=== PATIENT | female | born 1970 | race Caucasian/White ===

== ENCOUNTER → 2018-05-28 11:44 | Outpatient (CLI) | payer OTHER, SELFPAY ==
--- NOTE | 2018-05-28 | DI.RAD.S_ITS ---
PROCEDURE: XR HIP W PEL IF DONE RT 2V INDICATIONS: BILATERAL HAND AND RT HIP PAIN TECHNIQUE: AP pelvis with lateral view(s) of the right hip(s). COMPARISON: None. FINDINGS: Bones: No fractures or dislocations. Pelvic ring appears intact. No suspicious bony lesions. No evidence of avascular necrosis. Soft tissues: The visualized bowel gas pattern is normal. No suspicious soft tissue calcifications. IMPRESSION: Unremarkable radiographic examination of the pelvis and right hip. Dictated by: Rafi Sellers M.D. on 05/28/2018 at 12:10 Approved by: Rafi Sellers M.D. on 05/28/2018 at 12:11
--- NOTE | 2018-05-28 | DI.RAD.S_ITS ---
PROCEDURE: XR HAND RT MIN 3V INDICATIONS: BILATERAL HAND AND RT HIP PAIN TECHNIQUE: 3 views of the hand(s) acquired. COMPARISON: [facility], CR, XR HAND LT MIN 3V, 05/28/2018, 11:29. FINDINGS: Bones: No fractures or dislocations. Carpal bones are normally aligned. No suspicious bony lesions. No joint space narrowing or gross bony erosive changes. Soft tissues: No suspicious soft tissue calcifications. IMPRESSION: Unremarkable radiographic examination of right hand. Dictated by: Rafi Sellers M.D. on 05/28/2018 at 12:12 Approved by: Rafi Sellers M.D. on 05/28/2018 at 12:13
--- NOTE | 2018-05-28 | DI.RAD.S_ITS ---
PROCEDURE: XR HAND LT MIN 3V INDICATIONS: BILATERAL HAND AND RT HIP PAIN TECHNIQUE: 3 views of the hand(s) acquired. COMPARISON: None. FINDINGS: Bones: No fractures or dislocations. Carpal bones are normally aligned. No suspicious bony lesions. Soft tissues: No suspicious soft tissue calcifications. IMPRESSION: Unremarkable radiographic examination of left hand. No bony erosive changes are seen. No fracture or dislocation. Dictated by: Rafi Sellers M.D. on 05/28/2018 at 12:11 Approved by: Rafi Sellers M.D. on 05/28/2018 at 12:12
== END ==
PROVIDERS: PCP Family Medicine; Visit Provider Family Medicine
DX: M25.551 Pain in right hip (principal); M79.642 Pain in left hand; M79.641 Pain in right hand
CPT/HCPCS: 73130; 73502

== ENCOUNTER → 2019-05-22 11:50 | Outpatient (CLI) | payer OTHER, SELFPAY ==
--- NOTE | 2019-05-22 | DI.MG.S_ITS ---
BILATERAL DIGITAL SCREENING MAMMOGRAM 3D/2D WITH CAD: 05/22/2019 CLINICAL: Bilateral Screening. Comparison is made to exams dated: 11/17/2011 mammogram and 11/19/2009 mammogram - [facility]. The tissue of both breasts is heterogeneously dense. This may lower the sensitivity of mammography. Current study was also evaluated with a Computer Aided Detection (CAD) system. No significant masses, calcifications, or other findings are seen in either breast. There has been no significant interval change. IMPRESSION: NEGATIVE There is no mammographic evidence of malignancy. A 1 year screening mammogram is recommended. This exam was interpreted at Station ID: [id number]. NOTE: For mammograms, a report in lay terms will be sent to the patient. Approximately 15% of breast malignancies will not be visualized mammographically. In the management of a palpable breast mass, a negative mammogram must not discourage biopsy of a clinically suspicious lesion. Electronically Signed By: Asif fowler/jarret:05/22/2019 22:13:19 letter sent: Normal Exam ACR BI-RADS Category 1: Negative 3341F
== END ==
PROVIDERS: PCP Family Medicine; Visit Provider Family Medicine
DX: Z12.31 Encounter for screening mammogram for malignant neoplasm of breast (principal)
CPT/HCPCS: 77063; 77067

== ENCOUNTER → 2019-07-06 11:13 | Outpatient (CLI) | payer OTHER, SELFPAY ==
--- NOTE | 2019-07-06 | DI.US.S_ITS ---
PROCEDURE: US PELVIC COMPLETE INDICATIONS: UTERINE ENLARGEMENT TECHNIQUE: Real-time scanning was performed of the pelvic organs, with image documentation. Additional endovaginal scanning was necessary due to incomplete visualization of the adnexal and endometrial structures by transabdominal scanning. COMPARISON: None. FINDINGS: Transabdominal scanning: Limited scanning through the kidneys shows no hydronephrosis. No pathologic free abdominal or pelvic fluid. Endovaginal scanning: Uterus: Uterus is enlarged in size at 11.3 x 6.6 x 8 .4 cm. The endometrium measures 4.6 mm in combined thickness. Ovaries: Normal right ovary measuring 3.6 x 1.8 x 2.0 cm. Left ovary not visualized. IMPRESSION: 5.6 cm posterior intramural fibroid. Dictated by: Ramana Thakur [facility] Interpreted: Rafi Sellers MD on 07/06/2019 at 14:51 Approved by: Rafi Sellers M.D. on 07/11/2019 at 11:00
== END ==
PROVIDERS: PCP Family Medicine; Visit Provider Family Medicine
DX: N85.2 Hypertrophy of uterus (principal); D25.1 Intramural leiomyoma of uterus
CPT/HCPCS: 76830; 76856

== ENCOUNTER → 2020-06-10 16:55 | Outpatient (CLI) | payer OTHER, SELFPAY ==
--- NOTE | 2020-06-10 16:59 | DI.MG.S_ITS ---
BILATERAL DIGITAL SCREENING MAMMOGRAM 3D/2D WITH CAD: 06/10/2020 CLINICAL: Routine screening. Comparison is made to exams dated: 05/22/2019 mammogram, 11/19/2009 mammogram, and 11/17/2011 mammogram - [facility]. The tissue of both breasts is heterogeneously dense. This may lower the sensitivity of mammography. Current study was also evaluated with a Computer Aided Detection (CAD) system. No significant masses, calcifications, or other findings are seen in either breast. There has been no significant interval change. IMPRESSION: NEGATIVE There is no mammographic evidence of malignancy. A 1 year screening mammogram is recommended. This exam was interpreted at Station ID: [id number]. NOTE: For mammograms, a report in lay terms will be sent to the patient. Approximately 15% of breast malignancies will not be visualized mammographically. In the management of a palpable breast mass, a negative mammogram must not discourage biopsy of a clinically suspicious lesion. Electronically Signed By: Bhupinder lovell/jarret:06/11/2020 07:39:46 letter sent: Normal Exam ACR BI-RADS Category 1: Negative 3341F
== END ==
PROVIDERS: PCP Family Medicine; Referring Provider Family Medicine; Visit Provider Family Medicine
DX: Z12.31 Encounter for screening mammogram for malignant neoplasm of breast (principal)
CPT/HCPCS: 77063; 77067

== ENCOUNTER → 2020-07-30 15:04 | Outpatient (CLI) | payer OTHER, SELFPAY ==
[2020-07-30] MEDS: COVID-19 VACC(MODERNA-1)/PF 100 MCG/0.5 ML VIAL IM (15:06)
== END ==
PROVIDERS: PCP Family Medicine; Visit Provider Internal Medicine
DX: Z23 Encounter for immunization (principal)
CPT/HCPCS: 0011A; 91301

== ENCOUNTER → 2020-08-26 13:39 | Outpatient (CLI) | payer OTHER, SELFPAY ==
[2020-08-26] MEDS: COVID-19 VACC #2, MRNA(MOD) 100 MCG/0.5 ML VIAL IM (13:40)
== END ==
PROVIDERS: PCP Family Medicine; Visit Provider Internal Medicine
DX: Z23 Encounter for immunization (principal)
CPT/HCPCS: 0012A; 91301

== ENCOUNTER → 2021-04-23 13:18 | Outpatient (ROUT) | payer OTHER, SELFPAY ==
[2021-04-23 13:41] LABS: COVID19 -Nasal RAPID Negative (Negative)
== END ==
PROVIDERS: PCP Family Medicine; Visit Provider Physician Assistant
DX: Z20.822 Contact with and (suspected) exposure to COVID-19 (principal)
CPT/HCPCS: 87635

== ENCOUNTER → 2021-07-14 15:30 | Outpatient (CLI) | payer OTHER, SELFPAY ==
--- NOTE | 2021-07-14 15:33 | DI.MG.S_ITS ---
BILATERAL DIGITAL SCREENING MAMMOGRAM 3D/2D WITH CAD: 07/14/2021 CLINICAL: Routine screening. Comparison is made to exams dated: 06/10/2020 mammogram, 05/22/2019 mammogram, and 11/17/2011 mammogram - [facility]. The tissue of both breasts is heterogeneously dense. This may lower the sensitivity of mammography. Current study was also evaluated with a Computer Aided Detection (CAD) system. No significant masses, calcifications, or other findings are seen in either breast. There has been no significant interval change. IMPRESSION: NEGATIVE There is no mammographic evidence of malignancy. A 1 year screening mammogram is recommended. This exam was interpreted at Station ID: [id number]. NOTE: For mammograms, a report in lay terms will be sent to the patient. Approximately 15% of breast malignancies will not be visualized mammographically. In the management of a palpable breast mass, a negative mammogram must not discourage biopsy of a clinically suspicious lesion. Electronically Signed By: Gato horn/jarret:07/14/2021 16:49:46 letter sent: Normal Exam ACR BI-RADS Category 1: Negative 3341F
== END ==
PROVIDERS: PCP Family Medicine; Referring Provider Family Medicine; Visit Provider Family Medicine
DX: Z12.31 Encounter for screening mammogram for malignant neoplasm of breast (principal)
CPT/HCPCS: 77063; 77067

== ENCOUNTER → 2022-07-15 14:05 | Outpatient (CLI) | payer OTHER, SELFPAY ==
--- NOTE | 2022-07-15 14:06 | DI.MG.S_ITS ---
BILATERAL DIGITAL SCREENING MAMMOGRAM 3D/2D WITH CAD: 07/15/2022 CLINICAL: Routine screening. Comparison is made to exams dated: 07/14/2021 mammogram, 06/10/2020 mammogram, and 05/22/2019 mammogram - [facility]. Both breasts are heterogeneously dense, which may obscure small masses (category c / 51-75% glandular tissue). Current study was also evaluated with a Computer Aided Detection (CAD) system. No significant masses, calcifications, or other findings are seen in either breast. There has been no significant interval change. IMPRESSION: NEGATIVE There is no mammographic evidence of malignancy. A 1 year screening mammogram is recommended. Based on the Tyrer Cuzick model (a risk assessment model) the patient's lifetime risk is 14.7% and her 10 year risk is 4.1%. According to the ACR, ACS, and NCCN guidelines, an annual breast MRI exam along with mammogram is recommended if the patient's lifetime risk is 20% or greater. This exam was interpreted at Station ID: [id number]. NOTE: For mammograms, a report in lay terms will be sent to the patient. Approximately 15% of breast malignancies will not be visualized mammographically. In the management of a palpable breast mass, a negative mammogram must not discourage biopsy of a clinically suspicious lesion. Electronically Signed By: Onel Gatica M.D., jr/jarret:07/15/2022 14:59:33 letter sent: Normal Exam ACR BI-RADS Category 1: Negative 3341F
== END ==
PROVIDERS: PCP Family Medicine; Referring Provider Family Medicine; Visit Provider Family Medicine
DX: Z12.31 Encounter for screening mammogram for malignant neoplasm of breast (principal)
CPT/HCPCS: 77063; 77067

== ENCOUNTER → 2023-07-19 | Outpatient (CLI) | payer OTHER, SELFPAY ==
--- NOTE | 2023-07-19 12:47 | DI.MG.S_ITS ---
BILATERAL DIGITAL SCREENING MAMMOGRAM 3D/2D WITH CAD: 07/19/2023 CLINICAL: Routine screening. Comparison is made to exams dated: 07/15/2022 mammogram, 07/14/2021 mammogram, and 06/10/2020 mammogram - [facility]. Both breasts are heterogeneously dense, which may obscure small masses (category c / 51-75% glandular tissue). Current study was also evaluated with a Computer Aided Detection (CAD) system. There is a possible developing irregular high density asymmetry with a spiculated margin in the left breast at 1 o'clock posterior depth. There is architectural distortion associated with the asymmetry. There also is a possible developing new round asymmetry with an obscured and indistinct margin in the left breast middle depth central to the nipple seen on the craniocaudal view only. No other significant masses, calcifications, or other findings are seen in either breast. IMPRESSION: INCOMPLETE: NEEDS ADDITIONAL IMAGING EVALUATION The possible developing irregular high density asymmetry in the left breast at 1 o'clock posterior depth is indeterminate. Additional views with possible ultrasound are recommended. The possible developing new round asymmetry in the left breast middle depth central to the nipple seen on the craniocaudal view only is indeterminate. Additional views with possible ultrasound are recommended. Based on the Tyrer Cuzick model (a risk assessment model) the patient's lifetime risk is 15.3% and her 10 year risk is 4.5%. According to the ACR, ACS, and NCCN guidelines, an annual breast MRI exam along with mammogram is recommended if the patient's lifetime risk is 20% or greater. This exam was interpreted at Station ID: [id number]. NOTE: For mammograms, a report in lay terms will be sent to the patient. Approximately 15% of breast malignancies will not be visualized mammographically. In the management of a palpable breast mass, a negative mammogram must not discourage biopsy of a clinically suspicious lesion. Electronically Signed By: Abbey centeno/jarret:07/19/2023 16:32:56 letter sent: Additional Imaging Needed ACR BI-RADS Category 0: Incomplete 3340F
== END ==
PROVIDERS: PCP Family Medicine; Referring Provider Family Medicine; Visit Provider Family Medicine
DX: Z12.31 Encounter for screening mammogram for malignant neoplasm of breast (principal)
CPT/HCPCS: 77063; 77067

== ENCOUNTER → 2023-08-05 13:29 | Outpatient (CLI) | payer OTHER, SELFPAY ==
--- NOTE | 2023-08-05 13:31 | DI.MG.S_ITS ---
UNILATERAL LEFT DIGITAL DIAGNOSTIC MAMMOGRAM 3D/2D WITH ADDITIONAL VIEWS: 08/05/2023 CLINICAL: Additional evaluation requested from prior study. Comparison is made to exams dated: 07/19/2023 mammogram, 07/15/2022 mammogram, 07/14/2021 mammogram, and 06/10/2020 mammogram - [facility]. The left breast is heterogeneously dense, which may obscure small masses (category c / 51-75% glandular tissue). There is a possible asymmetry in the left breast middle depth central to the nipple seen on the craniocaudal view only. This is less prominent. There also is a possible asymmetry in the left breast at 1 o'clock posterior depth. This is not seen in additional views. No other significant masses or calcifications are seen in the breast. IMPRESSION: INCOMPLETE: NEEDS ADDITIONAL IMAGING EVALUATION Possible asymmetry in the left breast at 1 o'clock posterior depth is not seen in additional views. The possible asymmetry in the left breast middle depth central to the nipple is indeterminate. A targeted ultrasound is recommended and will immediately follow. Based on the Tyrer Cuzick model (a risk assessment model) the patient's lifetime risk is 15.3% and her 10 year risk is 4.5%. According to the ACR, ACS, and NCCN guidelines, an annual breast MRI exam along with mammogram is recommended if the patient's lifetime risk is 20% or greater. This exam was interpreted at Station ID: [id number]. NOTE: For mammograms, a report in lay terms will be sent to the patient. Approximately 15% of breast malignancies will not be visualized mammographically. In the management of a palpable breast mass, a negative mammogram must not discourage biopsy of a clinically suspicious lesion. Electronically Signed By: Freeman Griffin M.D. slc/:08/05/2023 14:09:39 ACR BI-RADS Category 0: Incomplete 3340F
--- NOTE | 2023-08-05 13:31 | DI.US.S_ITS ---
LIMITED ULTRASOUND OF LEFT BREAST AND AXILLA: 08/05/2023 CLINICAL: Patient returns today to evaluate a focal asymmetry in the left breast. Comparison is made to exams dated: 08/05/2023 mammogram, 07/19/2023 mammogram, 07/15/2022 mammogram, and 07/14/2021 mammogram - [facility]. Color flow and real-time ultrasound of the left breast 10-2 o'clock, and axilla regions were performed. Espinal scale images of the real-time examination were reviewed. No significant abnormalities were seen sonographically in the left breast or the left axilla. IMPRESSION: NEGATIVE There is no sonographic evidence of malignancy. No mass or cyst in the region of the possible asymmetry. Finding is consistent with fibroglandular tissue. No enlarged left axillary lymph nodes. Exam findings were discussed with the patient over the phone. A 1 year screening mammogram is recommended. This exam was interpreted at Station ID: [id number]. Electronically Signed By: Freeman Griffin M.D. [facility] [place]/:08/05/2023 14:28:22 letter sent: Normal Exam Ultrasound BI-RADS: 1 Negative
== END ==
LOC: MAMMO 13:30
PROVIDERS: PCP Family Medicine; Referring Provider Family Medicine; Visit Provider Family Medicine
DX: R92.8 Other abnormal and inconclusive findings on diagnostic imaging of breast (principal); R92.332 Mammographic heterogeneous density, left breast
CPT/HCPCS: 76642; 77065; G0279

== ENCOUNTER → 2025-04-25 16:58 | Outpatient (CLI) | payer OTHER, SELFPAY ==
--- NOTE | 2025-04-25 16:59 | DI.MG.S_ITS ---
MM screening mammo BI: 04/25/2025. BI-RADS: 1 CLINICAL: 55-year old female for bilateral screening mammogram. Tyrer-Cuzick lifetime risk of 8.3%. No personal or first-degree family history of breast cancer. PRIOR EXAMS 08/05/2023, 07/19/2023, 07/15/2022, 07/14/2021. MAMMOGRAPHY TECHNIQUE: 2D and 3D (tomosynthesis) digital mammographic views obtained, with additional images as needed for full coverage. Current study was also evaluated with a Computer Aided Detection (CAD) system. DENSITY C. The breasts are heterogeneously dense, which may obscure small masses. MAMMOGRAPHY FINDINGS Bilateral: No suspicious mass, asymmetry, microcalcification, or other abnormality seen. No significant change from comparison. IMPRESSION: * No evidence of malignancy. RECOMMENDATIONS Bilateral * Annual screening mammography. OVERALL ASSESSMENT CATEGORY BI-RADS-1: Negative. The [employer] recommends annual screening mammography beginning at age 40 for women with average risk of breast cancer. ELECTRONICALLY SIGNED: Phillip Conti M.D. on 04/30/2025 at 11:21:09 AM PT Interpreting Station ID: [id number]
== END ==
PROVIDERS: PCP Family Medicine; Referring Provider Family Medicine; Visit Provider Family Medicine
DX: Z12.31 Encounter for screening mammogram for malignant neoplasm of breast (principal); R92.333 Mammographic heterogeneous density, bilateral breasts
CPT/HCPCS: 77063; 77067